=== PATIENT | male | born 1935 | race Caucasian/White ===

== ENCOUNTER 2016-10-05 07:09 | Outpatient (CLI) | payer MEDICARE, OTHER ==
[2014-08-14 16:33] VITALS: BP 182/77
[2016-10-05 08:32] LABS: eGFR (African) > 60; eGFR (Non-African) > 60
[2016-10-05 08:39] LABS: BASOPHILS % 0.3 (0.0-1.5); EOSINOPHILS % 7.3 % (0.0-6.8); LYMPHOCYTES # 0.7 # k/uL (0.6-4.0); MEAN CORPUSCULAR HEMOGLOBIN 28.7 pg (28.0-34.0); MONOCYTES # 0.4 # k/uL (0.0-0.9); NEUTROPHILS # 4.7 # k/uL (1.4-7.7)
[2016-10-05 15:41] LABS: VITAMIN D, 25-HYDROXY 21 ng/mL (30-100)
== END 2016-10-05 07:10 ==
LOC: LAB 07:09
PROVIDERS: ATTEND Family Medicine
DX: E11.9 Type 2 diabetes mellitus without complications (principal); E11.59 Type 2 diabetes mellitus with other circulatory complications; E11.69 Type 2 diabetes mellitus with other specified complication; E78.5 Hyperlipidemia, unspecified; I10 Essential (primary) hypertension; E55.9 Vitamin D deficiency, unspecified
CPT/HCPCS: 36415; 80053; 80061; 82043; 82306; 82607; 83036; 84443; 85025

== ENCOUNTER 2017-05-17 07:19 | Outpatient (CLI) | payer MEDICARE, OTHER ==
[2014-08-14 16:33] VITALS: BP 182/77
[2017-05-17 08:06] LABS: BASOPHILS % 0.4 (0.0-1.5); EOSINOPHILS % 7.3 % (0.0-6.8); MEAN CORPUSCULAR HEMOGLOBIN 30.2 pg (28.0-34.0); MEAN CORPUSCULAR VOLUME 83.9 fl (80.0-100.0); MONOCYTES % 6.1 % (0.0-11.0); NEUTROPHILS # 4.6 # k/uL (1.4-7.7)
[2017-05-17 08:18] LABS: eGFR (African) > 60; eGFR (Non-African) > 60
[2017-05-17 23:37] LABS: VITAMIN D, 25-HYDROXY 43 ng/mL (30-100)
== END 2017-05-17 07:20 ==
LOC: LAB 07:19
PROVIDERS: ATTEND Family Medicine
DX: I10 Essential (primary) hypertension (principal); D64.9 Anemia, unspecified; E11.9 Type 2 diabetes mellitus without complications; E78.5 Hyperlipidemia, unspecified; M81.0 Age-related osteoporosis without current pathological fracture
CPT/HCPCS: 36415; 80053; 80061; 82043; 82306; 82607; 82746; 83036; 84443; 85025

== ENCOUNTER 2018-04-21 14:38 | Emergency (ER) | payer MEDICARE, OTHER ==
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
[2018-04-21 16:21] VITALS: BP 132/67
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
== END 2018-04-21 16:20 | disposition home or self-care (01) ==
LOC: ED 14:38
DX: M79.651 Pain in right thigh (principal)
CPT/HCPCS: 73552; 99283

== ENCOUNTER 2018-05-26 07:18 | Outpatient (CLI) | payer MEDICARE, OTHER ==
[2018-05-26 07:59] LABS: eGFR (Non-African) > 60
[2018-05-26 21:21] LABS: BASO % 0.5 % (0.0-1.5); EOS % 6.6 % (0.0-6.8); LYMPH ABS # 0.85 thou/uL (0.60-4.00); MCH. 28.8 pg (28.0-34.0); MCV 88.1 fL (80.0-100.0); MONOCYTE % 7.7 % (0.0-11.0); MONOCYTE ABS # 0.48 thou/uL (0.00-0.90); PLATELET COUNT 194 thou/uL (130-400)
== END 2018-05-26 07:20 ==
LOC: LAB 07:18
PROVIDERS: ATTEND Family Medicine
DX: I10 Essential (primary) hypertension (principal); E55.9 Vitamin D deficiency, unspecified; E11.9 Type 2 diabetes mellitus without complications; Z13.29 Encounter for screening for other suspected endocrine disorder; E78.5 Hyperlipidemia, unspecified
CPT/HCPCS: 36415; 80053; 80061; 82043; 82306; 82607; 83036; 84443; 85025

== ENCOUNTER 2018-12-09 09:11 | Outpatient (CLI) | payer MEDICARE, OTHER ==
[2018-12-09 09:55] LABS: MEAN CORPUSCULAR HEMOGLOBIN 29.1 pg (28.0-34.0); eGFR (Non-African) > 60
[2018-12-09 09:56] LABS: BASOPHILS % 0.9 (0.0-1.5); EOSINOPHILS % 4.4 % (0.0-6.8); MONOCYTES % 5.3 % (0.0-11.0); NEUTROPHILS # 4.8 # k/uL (1.4-7.7)
== END 2018-12-09 09:13 ==
LOC: LAB 09:11
PROVIDERS: ATTEND Family Medicine
DX: E11.9 Type 2 diabetes mellitus without complications (principal); E11.59 Type 2 diabetes mellitus with other circulatory complications; I10 Essential (primary) hypertension; D64.9 Anemia, unspecified
CPT/HCPCS: 36415; 80053; 85025